=== PATIENT | female | born 1980 | race Caucasian/White ===

== ENCOUNTER → 2017-03-29 | Outpatient (CLI) | payer SELFPAY ==
--- NOTE | 2017-03-29 13:23 | MR ---
PRE AND POSTCONTRAST ENHANCED MRI OF THE BRAIN: CLINICAL HISTORY: demylination, arm tingling, dizziness CONTRAST: 15 ML Multihance Multiplanar and multispin-echo imaging of the brain was performed both before and after the administr ation of contrast. The ventricles, basal cisterns and sulci overlying the cerebral convexities are within normal limits. There is no evidence for midline shift or mass effect. Acute intracranial hemorrhage or extra-axial collection is not evident. There are a few tiny nonspecific foci of increased signal within the deep white matter of both cerebr al hemispheres which is too small to appropriately characterize. Overall no change is appreciated. Following contrast administration, there is no evidence for pathologic enhancement or enhancing mass. The paranasal sinuses and mastoid air cells are well-aerated. IMPRESSION: Nonspecific white matter changes.
== END | disposition home or self-care (01) ==
LOC: RADMRIMAIN 11:41
DX: R90.82 White matter disease, unspecified (principal)
CPT/HCPCS: 70553; A9577